=== PATIENT | female | born 1980 | race Two or more races ===

== ENCOUNTER 2024-08-24 09:35 | Day surgery (SDC) | payer MEDICAID, SELFPAY ==
[2024-08-23 12:28] LABS: HCG Qualitative,Urine Negative
[2024-08-24] VITALS (10 sets, daily range): BP systolic 92–124; BP diastolic 52–71; PULSE 60–97; RESP 12–22; TEMP 36.5–36.8; O2SAT 96–100; BMI 25.9
[2024-08-24] MEDS: RINGERS LACTATED 500 ML 1,000 ML 60 ML IV (12:47)
[2024-08-24] MEDS: ONDANSETRON INJ 2 MG/ML INJ 2 ML 4 MG IV (13:08)
--- NOTE | 2024-08-24 13:20 | SUR.PHASEII ---
pt received from OR in recovery bay 7. pt asleep but responds to voice, breathing unlabored on room air. v/s stable. report received from Martha PATEL.
--- NOTE | 2024-08-24 13:41 | SUR.PHASEII ---
pt able to tolerate oral fluids without difficulty swallowing or nausea/vomiting.
--- NOTE | 2024-08-24 14:05 | SUR.PHASEII ---
pt awake and alert, breathing unlabored on room air. v/s stable. pt able to ambulate to wheelchair with steady gait. d/c instructions given with daughter in room, all questions answered. pt d/c via wheelchair with all belongings.
== END 2024-08-24 14:05 | disposition home or self-care (01) ==
PROVIDERS: Referring Provider Specialist; Visit Provider Specialist
PROC: (CPT 43239; principal; 2024-08-24 11:00)
DX: K29.50 Unspecified chronic gastritis without bleeding (principal); K21.00 Gastro-esophageal reflux disease with esophagitis, without bleeding; K44.9 Diaphragmatic hernia without obstruction or gangrene; K31.89 Other diseases of stomach and duodenum; Z79.899 Other long term (current) drug therapy
CPT/HCPCS: 43239; 81025; A4649; J1200; J2250; J2405; J3010; J7120; A9270